=== PATIENT | male | born 1970 | race Caucasian/White ===

== ENCOUNTER 2017-12-18 10:13 | Inpatient (IN) ==
[2017-12-18] MEDS ORDERED: IOPAMIDOL 100 ML BOTTLE IV ONE (10:14)
[2017-12-18] MEDS ORDERED: 0.9 % SODIUM CHLORIDE 1,000 ML IV ONE ×3 (10:28→13:53)
[2017-12-18] MEDS ORDERED: ONDANSETRON 4 MG/2 ML VIAL ONE (10:41)
--- NOTE | 2017-12-18 10:42 | Emergency Department Note ---
Abdominal Pain HPI - General Source: patient Mode of arrival: ambulatory Limitations: no limitations <Iain Starr - Last Filed: 12/18/17 10:38> <Landon Lloyd - Last Filed: 12/18/17 12:57> - General Chief Complaint: Abdominal Pain Stated Complaint: right lower abd pain, nausea, vomiting x 2 days Time Seen by Provider: 12/18/17 10:18 - History of Present Illness HPI Narrative: This is a 47 year old male coming into the ER with c/o right lower quadrant abdominal pain since yesterday at 1:00pm. Describes that it started in the periumbilical region before descending to the right lower quadrant. Describes it as constant, sharp. Has not felt feverish. Has felt chills. reports nausea and vomiting today. Denies pain in the epigastric, left lower quadrant, right upper quadrant, or left upper quadrant. Denies pain radiating to the back. denies hx of ulcerative colitis, celiac, crohns, ibs. denies chest pain, shortness of breath. (Iain Starr) - Related Data Home Medications Medication Instructions Recorded Confirmed No Known Home Meds [No Known Home 12/18/17 12/18/17 Meds] Allergies Allergy/AdvReac Type Severity Reaction Status Date / Time No Known Drug Allergies Allergy Verified 12/18/17 10:17 Review of Systems All systems ED: reviewed and negative except as stated. Constitutional: Reports: chills. Denies: fever, weakness, weight change, sweats Cardiovascular: Denies: chest pain, palpitations Respiratory: Denies: shortness of breath, cough, wheezes, phlegm, hemoptysis Gastrointestinal: Reports: abdominal pain, nausea, vomiting. Denies: diarrhea, constipation Genitourinary: Denies: dysuria, frequency, urgency, hematuria Musculoskeletal: Denies: back pain, joint swelling Integumentary: Denies: rash, lesions Neurological: Denies: headache <Iain Starr - Last Filed: 12/18/17 10:38> Abdominal Pain PMH - Social History Smoking status: Current every day smoker Alcohol use: Reports: Heavy (greater than a fifth of whiskey a day and has gone to rehabilitation in the past) Drug use: Reports: marijuana (records from [facility] [age] year-old, history of methamphetamine abuseand marijuana), methamphetamine <Iain Starr - Last Filed: 12/18/17 10:38> <Landon Lloyd - Last Filed: 12/18/17 12:57> - Past Medical History [facility] Narrative: Medical History Alcoholism (Acute) Bronchitis (Acute) (Iain Starr) Physical Exam Limitations: no limitations General appearance: alert, anxious Head: atraumatic, normocephalic Eye: Present: PERRL, EOMI ENT: TM's normal bilaterally, other (nose appears to be consistent appearing with a recent fall) Neck: Present: normal inspection, full ROM, trachea midline. Absent: tenderness Chest: Present: normal inspection, symmetric chest wall rise Respiratory: Present: normal lung sounds bilaterally Cardiovascular: Present: normal rhythm, tachycardia Abdominal: Present: tenderness, guarding, Rovsing's sign, tenderness at McBurney 's Point. 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 Documented H&P reviewed. Separate assessment made. Patient with increasing right lower quadrant pain. Examination shows anxious, no shortness of breath, no tachypnea. Mild dry mucous membranes. Lung sounds clear, heart sounds regular. Abdomen with diminished bowel sounds, positive rebound and referred pain, focal to the right lower quadrant. Labs, CT, meds ordered. (Landon Lloyd R) Vital Signs Temperature 97.7 F 12/18/17 10:14 Pulse Rate 122 H 12/18/17 10:14 Respiratory Rate 20 12/18/17 10:14 Blood Pressure 120/81 12/18/17 10:14 Pulse Oximetry (%) 97 12/18/17 10:14 Temperature 97.7 F 12/18/17 10:14 Pulse Rate 93 H 12/18/17 11:56 Respiratory Rate 20 12/18/17 10:14 Blood Pressure 114/81 12/18/17 11:56 Pulse Oximetry (%) 94 12/18/17 11:56 Abdominal Pain - Lab Data Result diagrams: 12/18/17 10:36 12/18/17 10:36 <Iain Starr - Last Filed: 12/18/17 10:38> - Lab Data Lab results reviewed: Yes I reviewed the patient's lab results. Result diagrams: 12/18/17 10:36 12/18/17 10:36 - Radiology Data Radiology results reviewed: Yes I reviewed the patient's radiology results. <Lanodn Lloyd - Last Filed: 12/18/17 12:57> - Lab Data Lab Results 12/18/17 12/18/17 12/18/17 Range/Units 10:36 10:36 10:36 WBC 22.0 H (4.5-11.0) K/mcL RBC 5.10 (4.50-5.90) M/mcL Hgb 17.2 H (13.5-16.5) g/dL Hct 50.7 (41.0-55.0) % POC Hct (41.0-55.0) % MCV 99.5 (80.0-100.0) fL MCH 33.8 (26.0-34.0) pg MCHC 33.9 (31.0-36.0) g/dL RDW 14.2 (11.5-14.5) % Plt Count 256 (140-440) K/mcL MPV 8.7 (7.4-10.4) fL Total Counted 100 Seg Neutrophils % 79 H (38-78) % Band Neutrophils % 12 H (0-10) % Lymphocytes % 4 L (15-49) % Monocytes % (Manual) 5 (1-12) % Platelet Estimate Normal (NORMAL) RBC Morphology Normal (NORMAL) VBG Lactic Acid 3.8 H (0.5-2.2) mmol/L POC Sodium (133-145) mmol/L Sodium 136 (133-145) mmol/L POC Potassium (3.3-5.1) mmol/L Potassium 3.3 (3.3-5.1) mmol/L POC Chloride (96-108) mmol/L Chloride 91 L (96-108) mmol/L Carbon Dioxide 30 (22-30) mmol/L POC Total CO2 (22-30) mmol/L Anion Gap 15.0 (8-16) POC BUN (6-20) mg/dl BUN 10 (6-20) mg/dl Creatinine 1.1 (0.7-1.2) mg/dl POC Creatinine (0.7-1.2) mg/dl GFR Calculation 79 Glucose 150 H (70-105) mg/dL POC Glucose (70-105) mg/dL Calcium 10.2 (8.6-10.4) mg/dl POC WB Ioniz Calcium (1.16-1.32) mmol/L Total Bilirubin 1.5 H (0.0-1.0) mg/dL AST 18 (0-37) U/l ALT 16 (0-40) U/l Alkaline Phosphatase 97 (39-117) U/L Total Protein 7.4 (5.9-8.4) gm/dL Albumin 4.1 (3.2-5.2) gm/dL Globulin 3.3 (2.2-3.7) gm/dL Albumin/Globulin Ratio 1.2 (1.0-2.3) 12/18/17 Range/Units 11:09 WBC (4.5-11.0) K/mcL RBC (4.50-5.90) M/mcL Hgb (13.5-16.5) g/dL Hct (41.0-55.0) % POC Hct 46.0 (41.0-55.0) % MCV (80.0-100.0) fL MCH (26.0-34.0) pg MCHC (31.0-36.0) g/dL RDW (11.5-14.5) % Plt Count (140-440) K/mcL MPV (7.4-10.4) fL Total Counted Seg Neutrophils % (38-78) % Band Neutrophils % (0-10) % Lymphocytes % (15-49) % Monocytes % (Manual) (1-12) % Platelet Estimate (NORMAL) RBC Morphology (NORMAL) VBG Lactic Acid (0.5-2.2) mmol/L POC Sodium 137 (133-145) mmol/L Sodium (133-145) mmol/L POC Potassium 3.0 L (3.3-5.1) mmol/L Potassium (3.3-5.1) mmol/L POC Chloride 95 L (96-108) mmol/L Chloride (96-108) mmol/L Carbon Dioxide (22-30) mmol/L POC Total CO2 28 (22-30) mmol/L Anion Gap (8-16) POC BUN 10 (6-20) mg/dl BUN (6-20) mg/dl Creatinine (0.7-1.2) mg/dl POC Creatinine 0.8 (0.7-1.2) mg/dl GFR Calculation Glucose (70-105) mg/dL POC Glucose 117 H (70-105) mg/dL Calcium (8.6-10.4) mg/dl POC WB Ioniz Calcium 1.04 L (1.16-1.32) mmol/L Total Bilirubin (0.0-1.0) mg/dL AST (0-37) U/l ALT (0-40) U/l Alkaline Phosphatase (39-117) U/L Total Protein (5.9-8.4) gm/dL Albumin (3.2-5.2) gm/dL Globulin (2.2-3.7) gm/dL Albumin/Globulin Ratio (1.0-2.3) - Radiology Data CT with free air; suspected perforation (Landon Lloyd) Disposition Pt seen by TRANSFER STATION OPERATOR/PA only: No <Iain Starr - Last Filed: 12/18/17 10:38> Pt seen by TRANSFER STATION OPERATOR/PA only: No <Landon Lloyd - Last Filed: 12/18/17 12:57> Clinical Impression: Intra-abdominal free air of unknown etiology, Alcohol abuse Summary: 1.) RLQ Abdominal pain, unspecified A.) Order CT r/o appendicitis b.) Order CBC, CMP c.) Order 1000 ml NS d.) Order Zofran IV e.) Order Dilaudid IV f.) re-evaluate after results are in. (Iain Starr) Dr. Chapin, surgery to follow; suspected perforated ulcer versus retroperitoneal appendix (Landon Llody) Disposition: Xfer As Inpt ([facility] [place]) Condition: Serious
[2017-12-18] MEDS ORDERED: ONDANSETRON 4 MG/2 ML VIAL IV ONE ×2 (10:43→15:05)
[2017-12-18] MEDS: HYDROmorphone 2 MG/ML VIAL IV PRN ×5 (10:48→22:37)
[2017-12-18 11:05] LABS: Mean Cell Volume 99.5 fL (80.0-100.0); Mean Corpuscular HGB Conc 33.9 g/dL (31.0-36.0); Mean Corpuscular Hemoglobin 33.8 pg (26.0-34.0); Platelet Count 256 K/mcL (140-440); Red Cell Distribution Width 14.2 % (11.5-14.5)
[2017-12-18 11:28] LABS: ALT/SGPT 16 U/l (0-40); Albumin 4.1 gm/dL (3.2-5.2); Albumin/Globulin Ratio 1.2 (1.0-2.3); Alkaline Phosphatase 97 U/L (39-117); Blood Urea Nitrogen 10 mg/dl (6-20)
[2017-12-18 11:38] LABS: Band Neutrophils % 12 % (0-10); Lymphocytes % 4 % (15-49); Monocytes % (Manual) 5 % (1-12); Platelet Estimate NORMAL (NORMAL); RBC Morphology NORMAL (NORMAL); Segmented Neutrophils % 79 % (38-78)
--- NOTE | 2017-12-18 12:48 | Cat Scan Report ---
CLINICAL INFORMATION: Acute right abdominal pain COMPARISON: None. TECHNIQUE: Following enteric contrast, 80 cc of Isovue-300 were injected intravenously, and 60 seconds later, 0.625 mm helical slices were obtained from the mid heart through the subtrochanteric regions. Following reconstruction, 2.5 mm sagittal, coronal and axial reformatted images were processed and reviewed at bone, lung and soft tissue windows. Five minutes later, 0.625 mm helical slices were obtained from the mid heart through the kidneys and viewed at soft tissue windows.The exam was performed using radiation dose optimization techniques including, but not limited to, automated exposure control, adjustment of the mA and/or kV according to patient size and use of iterative reconstruction technique. FINDINGS: Lung bases show scattered bullae and minimal atelectasis in the posterior dependent regions. Small focal linear calcification seen in the left diaphragmatic pleura. No effusions. Visualized heart is normal. Images through the abdomen show minimal fatty change within the liver, but no focal lesions. The gallbladder and bile ducts, both kidneys, adrenal glands, spleen, pancreas and aorta, including aortic branches, are normal in size, configuration and attenuation without focal lesion. Images through the pelvis show urinary bladder, prostate and seminal vesicles are normal. There is a moderate gas and fluid in the right retroperitoneum extending from the right periduodenal region, anterior right pararenal space into the right retrocolic region. No perforated duodenal ulcer or right colonic perforation can be specifically identified by CT. The remainder of the colon, small bowel, stomach and appendix are normal. Bone windows show no osseous abnormality. There is no free intraperitoneal air or fluid. IMPRESSION: 1. Moderate air and fluid throughout the right retroperitoneum including the periduodenal, anterior pararenal and right retrocolic space. This ostensibly originated from a retroperitoneal rupture of a hollow abdominal viscus - likely a peptic ulceration in the duodenum. Pathologic perforation of the right colon is possible, but less likely. If it is clinically important to localize the precise anatomic site of perforation prior to surgery, copious water soluble, positive enteric contrast could be administered and the CT could be repeated. Interpreted and Authenticated by: Pravin Maloney 12/18/17
[2017-12-18] MEDS ORDERED: NICOTINE 21 MG PATCH TOPICAL ONE (14:15)
[2017-12-18] MEDS ORDERED: PIPERACILLIN SODIUM/TAZOBACTAM 3.375 GM in DEXTROSE 5% IN WATER 50 ML IV SCH (14:30)
[2017-12-18] MEDS ORDERED: 0.9 % SODIUM CHLORIDE 1,000 ML IV SCH (14:30)
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
[2017-12-18 14:34] LABS: Amphetamine Screen,Urine NONE DETECTED (NONDETECTED); Benzodiazepines Screen,Urine NONE DETECTED (NONDETECTED); Cocaine Screen,Urine NONE DETECTED (NONDETECTED); Opiate Screen,Urine NONE DETECTED (NONDETECTED); Oxycodone, Urine Screen NONE DETECTED (NONDETECTED)
[2017-12-18] MEDS ORDERED: LORazepam 2 MG/ML VIAL IV ONE (14:41)
[2017-12-18] MEDS ORDERED: POTASSIUM CHLORIDE 20 MEQ in DEXTROSE 5% IN WATER 250 ML IV ONE (14:51)
[2017-12-18] MEDS ORDERED: ROCURONIUM 10 MG/ML ML IV ONE (15:05)
[2017-12-18] MEDS ORDERED: ESMOLOL 100 MG/10 ML VIAL IV ONE (15:05)
[2017-12-18] MEDS ORDERED: KETAMINE 100 MG/ML ML IV ONE (15:05)
[2017-12-18] MEDS ORDERED: PROPOFOL 200 MG/20 ML VIAL IV ONE (15:05)
[2017-12-18] MEDS ORDERED: METOPROLOL TARTRATE 5 MG/5 ML VIAL IV ONE (15:05)
[2017-12-18] MEDS ORDERED: GLYCOPYRROLATE 0.2 MG/ML VIAL IV ONE (15:05)
[2017-12-18] MEDS ORDERED: HETASTARCH 6% 500 ML BAG IV ONE (15:05)
[2017-12-18] MEDS ORDERED: DEXAMETHASONE 10 MG/ML VIAL IV ONE (15:05)
[2017-12-18] MEDS ORDERED: LIDOCAINE HCL/PF 100 MG/5 ML SYRINGE IV ONE (15:05)
[2017-12-18] MEDS ORDERED: fentaNYL 100 MCG/2 ML VIAL IV ONE (15:05)
[2017-12-18] MEDS ORDERED: NEOSTIGMINE 1 MG/ML VIAL IV ONE (15:05)
[2017-12-18] MEDS ORDERED: MIDAZOLAM 5 MG/5 ML VIAL IV ONE (15:05)
[2017-12-18] MEDS ORDERED: PHENYLEPHRINE 10 MG/ML VIAL IV ONE (15:05)
[2017-12-18] MEDS: PANTOPRAZOLE 40 MG VIAL IV SCH (15:22)
[2017-12-18] MEDS ORDERED: ONDANSETRON 4 MG/2 ML VIAL IV PRN ×2 (16:21→17:07)
[2017-12-18] MEDS ORDERED: MEPERIDINE 25 MG/ML SYRINGE IV PRN (16:21)
[2017-12-18] MEDS ORDERED: fentaNYL 100 MCG/2 ML VIAL IV PRN (16:21)
[2017-12-18] MEDS ORDERED: IPRATROPIUM/ALBUTEROL 3 ML AMPUL.NEB NEB PRN (16:21)
[2017-12-18] MEDS ORDERED: MEPERIDINE 50 MG/ML INJECTION IM PRN (16:21)
[2017-12-18] MEDS ORDERED: LACTATED RINGERS 250 ML IV PRN (16:21)
[2017-12-18] MEDS ORDERED: NALOXONE HCL 0.4 MG/ML VIAL IV PRN (16:21)
[2017-12-18] MEDS ORDERED: METHOCARBAMOL 1,000 MG/10 ML VIAL IV PRN (16:21)
[2017-12-18] MEDS ORDERED: HYDROmorphone 2 MG/ML VIAL IV PRN (16:21)
[2017-12-18] MEDS ORDERED: ACETAMINOPHEN 1,000 MG/100 ML BOTTLE IV ONE (16:21)
[2017-12-18] MEDS ORDERED: BENZOCAINE/MENTHOL 1 LOZENGE PO PRN (16:21)
[2017-12-18] MEDS ORDERED: FLUMAZENIL 0.1 MG/ML ML IV PRN (16:21)
[2017-12-18] MEDS ORDERED: PROMETHAZINE 25 MG/ML VIAL IM PRN (16:21)
[2017-12-18] MEDS ORDERED: LACTATED RINGERS 1,000 ML IV SCH (16:30)
[2017-12-18] MEDS ORDERED: PANTOPRAZOLE 40 MG VIAL IV SCH (17:00)
--- NOTE | 2017-12-18 17:05 | Brief Operative Note ---
Date of procedure: 12/18/17 Pre-op diagnosis: perforated viscus Post-op diagnosis: other (perforated duodenal bulb ulcer) Procedure: fabio patch closure of duodenal ulcer Grafts/Implants: No (evonne drain x 2) Anesthesia: GETA Findings: retroperitoneal perforation of duodenal bulb along posterolateral margin with extensive retroperitoneal inflammation extending to perirenal space and contained abscess Complications: none Surgeon: Leyda Chapin Estimated blood loss (cc): 50 Specimens Removed/Pathology: other (cultures of abscess cavity fluid) Condition: stable Disposition: PACU
[2017-12-18] MEDS ORDERED: PROMETHAZINE 25 MG/ML VIAL IV PRN (17:07)
[2017-12-18] MEDS: METOCLOPRAMIDE 10 MG/2 ML VIAL IV SCH ×2 (19:02→23:47)
[2017-12-18] MEDS: 0.9 % SODIUM CHLORIDE 1,000 ML IV SCH (19:02)
[2017-12-18] MEDS: PIPERACILLIN SODIUM/TAZOBACTAM 3.375 GM in DEXTROSE 5% IN WATER 50 ML IV SCH ×2 (19:06→23:47)
[2017-12-18] MEDS: LORazepam 2 MG/ML VIAL IV PRN (21:34)
[2017-12-18] MEDS: 0.9 % SODIUM CHLORIDE 10 ML SYRINGE IV SCH (22:37)
[2017-12-19] MEDS: HYDROmorphone 2 MG/ML VIAL IV PRN ×10 (00:30→23:29)
[2017-12-19] MEDS: 0.9 % SODIUM CHLORIDE 1,000 ML IV SCH ×4 (03:10→20:08)
[2017-12-19] MEDS: LORazepam 2 MG/ML VIAL IV PRN (04:15)
[2017-12-19 05:20] LABS: Mean Cell Volume 101.4 fL (80.0-100.0); Mean Corpuscular HGB Conc 33.4 g/dL (31.0-36.0); Mean Corpuscular Hemoglobin 33.9 pg (26.0-34.0); Platelet Count 163 K/mcL (140-440); RBC 3.92 M/mcL (4.50-5.90); Red Cell Distribution Width 14.2 % (11.5-14.5)
[2017-12-19] MEDS: METOCLOPRAMIDE 10 MG/2 ML VIAL IV SCH ×4 (05:37→23:29)
[2017-12-19] MEDS: 0.9 % SODIUM CHLORIDE 10 ML SYRINGE IV SCH ×3 (05:37→22:45)
[2017-12-19] MEDS: PIPERACILLIN SODIUM/TAZOBACTAM 3.375 GM in DEXTROSE 5% IN WATER 50 ML IV SCH ×4 (05:38→23:30)
[2017-12-19 05:45] LABS: ALT/SGPT 13 U/l (0-40); Albumin 2.7 gm/dL (3.2-5.2); Alkaline Phosphatase 64 U/L (39-117); Bilirubin,Direct 0.3 mg/dL (0.0-0.3); Blood Urea Nitrogen 10 mg/dl (6-20); Gamma Glutamyl Transpeptidase 14 U/L (8-61); Uric Acid 2.5 mg/dL (2.5-8.0)
--- NOTE | 2017-12-19 07:29 | Operative Note ---
DATE OF OPERATION: 12/18/2017 PREOPERATIVE DIAGNOSIS: Perforated viscus. POSTOPERATIVE DIAGNOSIS: Perforated duodenal bulb ulcer. SURGEON: Leyda Chapin MD FINDINGS: Retroperitoneal perforation of the duodenal bulb along the posterolateral margin with extensive retroperitoneal inflammation extending to the perirenal space with a contained abscess. PROCEDURE: Benji patch closure of duodenal ulcer. DESCRIPTION OF PROCEDURE: Under general anesthesia, the patient's abdomen was prepped and draped in the sterile field. A time-out procedure was carried out as per protocol. Upper midline incision was made. Exploration of the abdomen initially did not reveal any intraperitoneal drainage or inflammation. Examination of the subhepatic space did not reveal any drainage. There was no free fluid in the pelvis. Dissection along the superior margin of the duodenal bulb revealed an area of what appeared to be inflammation with a pointing abscess. The Bookwalter retractor was placed and this area was widely exposed. Incision was made over one of the bulging areas and a large volume of mucopurulent drainage was encountered, 5 mL of this drainage was suctioned and was sent for routine culture SURGICAL APPLIANCE FITTER and Gram stain. The duodenum was completely mobilized. The duodenum was mobilized to the second portion. The duodenal bulb showed a punctate perforation distal to the pylorus along the superior lateral margin. It was slightly posterior. This area was irrigated copiously and the fibrinous exudate was debrided. No other area of perforation was noted. The ulcer perforation was closed with four sutures of 2-0 silk. An omental patch from the greater omentum was fashioned and was placed over the area of the closure and the sutures were tied. Multiple 3-0 silk sutures were then placed along the lateral borders of this patch to get firm adherence of the patch to the duodenum. This was done without tension in an attempt to prevent compromise of the duodenal lumen. Irrigation was carried out once more. Two #10 Ramesh drains were placed and brought out in the right upper quadrant laterally. Nasogastric tube was positioned in the stomach. Copious irrigation of the peritoneal cavity was carried out and there was no purulent drainage noted. The appendix was noted at the base of the cecum and it was normal. Sponge, needle, instrument and blade counts were verified as correct. A visceral retractor was placed and the peritoneum was closed using a running #1 Prolene. Subcutaneous tissue was irrigated and then closed with running 2-0 Monocryl. Skin was closed with lucas. Drains were secured with 2-0 nylon. Large Tegaderm dressings were placed. The patient tolerated the procedure well. He was awakened, extubated, and transferred to the Postanesthetic Care Unit in stable satisfactory condition. LCS:ivone Job ID: [id number] Doc ID: [id number] Leyda Chapin M.D.
[2017-12-19] MEDS ORDERED: MAGNESIUM SULFATE 32.48 MEQ in DEXTROSE 5% IN WATER 100 ML IV ONE (08:00)
[2017-12-19] MEDS: PANTOPRAZOLE 40 MG VIAL IV SCH ×2 (08:04→17:11)
[2017-12-19 08:09] LABS: Anisocytosis 1+ (NONE SEEN); Band Neutrophils % 15 % (0-10); Lymphocytes % 3 % (15-49); Monocytes % (Manual) 3 % (1-12); Platelet Estimate NORMAL (NORMAL); RBC Morphology ABNORM (NORMAL); Segmented Neutrophils % 79 % (38-78)
[2017-12-19] MEDS: NICOTINE 21 MG PATCH TOPICAL SCH (17:02)
[2017-12-19] MEDS: BENZOCAINE/MENTHOL 1 LOZENGE PO PRN ×3 (17:02→21:38)
--- NOTE | 2017-12-19 17:04 | General Surgery Progress Note ---
Subjective Patient reports: feels better, pain is less, no flatus, no bowel movement, afebrile Narrative: Note initiated : 12/19/17 at 5:02 pm Service Date, if different from initiated Date: [] Patient: Fermín Galo 47 y/o M admitted on 12/18/17 for R.Lower Abd Pain, Vomiting,Prefor.of Duodenal Bulb. Chief Complaint: [Patient is doing well except for the anticipated incisional pain. He does not have any nausea. He complains of withdrawal symptoms from nicotine. He does not have any mental confusion or agitation otherwise. He denies chest pain or shortness of breath. RAHEL drainage is serosanguineous without any bilious drainage noted.] Objective Temp Pulse Resp BP Pulse Ox 99 F 89 9 L 106/82 95 12/19/17 15:01 12/19/17 16:11 12/19/17 15:01 12/19/17 15:01 12/19/17 16:11 - Additional Data Intake & Output - Last 24 hours: Intake & Output 12/17/17 12/18/17 12/19/17 12/20/17 05:59 05:59 05:59 05:59 Intake Total 3150 / 3150 1050 / 1050 Output Total 1045 / 1045 1230 / 1230 Balance 2105 / 2105 -180 / -180 Weight 190 lb 14.4 oz 190 lb 14.4 oz - General physical appearance well developed, well nourished, moderate distress - Eyes PERRL, normal ocular movement - ENT normal pinna, normal nares, normal mucosa, no hearing loss, no congestion - Neck no masses, no bruits, trachea midline, no lymphadectomy, no venous distension - Respiratory clear to auscultation, other (Decreased breath sounds bilaterally but without any rales or wheezes) - Cardiovascular Cardiovascular exam: Present: normal rate and rhythm, RRR, +S1, +S2. Absent: JVD - Abdomen tender, bowel sounds, distended (Mild abdominal distention; incision looks unremarkable; few active bowel sounds; RAHEL drainage is serosanguineous) - Integumentary no rash, no growths, no abnormal pigmentation - Neurologic normal coordination, normal sensation - Psychiatric oriented to time, oriented to person, oriented to place, speech is normal, memory intact - Labs 12/19/17 03:52 12/19/17 03:52 Diabetes panel 12/19/17 Range/Units 03:52 Sodium 137 (133-145) mmol/L Potassium 4.1 (3.3-5.1) mmol/L Chloride 101 (96-108) mmol/L Carbon Dioxide 26 (22-30) mmol/L BUN 10 (6-20) mg/dl Creatinine 0.7 (0.7-1.2) mg/dl Glucose 115 H (70-105) mg/dL Calcium 7.8 L (8.6-10.4) mg/dl AST 19 (0-37) U/l ALT 13 (0-40) U/l Alkaline Phosphatase 64 (39-117) U/L Total Protein 5.3 L (5.9-8.4) gm/dL Albumin 2.7 L (3.2-5.2) gm/dL Triglycerides 44 (<150) mg/dl Calcium panel 12/19/17 Range/Units 03:52 Calcium 7.8 L (8.6-10.4) mg/dl Phosphorus 2.7 (2.7-4.5) mg/dL Albumin 2.7 L (3.2-5.2) gm/dL Pituitary panel 12/19/17 Range/Units 03:52 Sodium 137 (133-145) mmol/L Potassium 4.1 (3.3-5.1) mmol/L Chloride 101 (96-108) mmol/L Carbon Dioxide 26 (22-30) mmol/L BUN 10 (6-20) mg/dl Creatinine 0.7 (0.7-1.2) mg/dl Glucose 115 H (70-105) mg/dL Calcium 7.8 L (8.6-10.4) mg/dl Adrenal panel 12/19/17 Range/Units 03:52 Sodium 137 (133-145) mmol/L Potassium 4.1 (3.3-5.1) mmol/L Chloride 101 (96-108) mmol/L Carbon Dioxide 26 (22-30) mmol/L BUN 10 (6-20) mg/dl Creatinine 0.7 (0.7-1.2) mg/dl Glucose 115 H (70-105) mg/dL Calcium 7.8 L (8.6-10.4) mg/dl Total Bilirubin 0.8 (0.0-1.0) mg/dL AST 19 (0-37) U/l ALT 13 (0-40) U/l Alkaline Phosphatase 64 (39-117) U/L Total Protein 5.3 L (5.9-8.4) gm/dL Albumin 2.7 L (3.2-5.2) gm/dL Assessment and Plan (1) Perforated abdominal viscus Status: Acute Assessment and plan: Stable postoperative day #1 We will continue present therapy for the time being Current Visit: Yes (2) History of polydrug abuse Status: Acute Assessment and plan: No clinical evidence of drug withdrawal symptoms Current Visit: Yes (3) Alcoholism Status: Acute Assessment and plan: No evidence of alcohol withdrawal Current Visit: No (4) Bronchitis Status: Acute Current Visit: No - Time Spent With Patient Total time spent is greater than 50% in coordination of care (as documented) at patient's floor/unit and/or counseling patient:
[2017-12-20] MEDS: HYDROmorphone 2 MG/ML VIAL IV PRN ×4 (01:32→09:20)
[2017-12-20] MEDS: BENZOCAINE/MENTHOL 1 LOZENGE PO PRN ×2 (01:35→08:31)
[2017-12-20] MEDS: 0.9 % SODIUM CHLORIDE 1,000 ML IV SCH ×2 (03:47→11:50)
[2017-12-20 05:30] LABS: Mean Cell Volume 100.5 fL (80.0-100.0); Mean Corpuscular HGB Conc 33.8 g/dL (31.0-36.0); Mean Corpuscular Hemoglobin 33.9 pg (26.0-34.0); Platelet Count 134 K/mcL (140-440); RBC 3.69 M/mcL (4.50-5.90); Red Cell Distribution Width 14.3 % (11.5-14.5)
[2017-12-20] MEDS: METOCLOPRAMIDE 10 MG/2 ML VIAL IV SCH ×2 (05:35→12:15)
[2017-12-20] MEDS: 0.9 % SODIUM CHLORIDE 10 ML SYRINGE IV SCH (05:35)
[2017-12-20] MEDS: PIPERACILLIN SODIUM/TAZOBACTAM 3.375 GM in DEXTROSE 5% IN WATER 50 ML IV SCH ×2 (05:35→12:15)
[2017-12-20 06:09] LABS: ALT/SGPT 9 U/l (0-40); Albumin 2.6 gm/dL (3.2-5.2); Alkaline Phosphatase 58 U/L (39-117); Bilirubin,Direct < 0.2 mg/dL (0.0-0.3); Blood Urea Nitrogen 13 mg/dl (6-20); Gamma Glutamyl Transpeptidase 14 U/L (8-61); Uric Acid 2.2 mg/dL (2.5-8.0)
[2017-12-20] MEDS: PANTOPRAZOLE 40 MG VIAL IV SCH (07:01)
[2017-12-20 07:27] LABS: Band Neutrophils % 1 % (0-10); Lymphocytes % 14 % (15-49); Macrocytosis 1+ (NONE SEEN); Monocytes % (Manual) 4 % (1-12); Platelet Estimate DECREASED (NORMAL); RBC Morphology ABNORM (NORMAL); Segmented Neutrophils % 81 % (38-78)
[2017-12-20] MEDS: NICOTINE 21 MG PATCH TOPICAL SCH (08:23)
[2017-12-20] MEDS ORDERED: IPRATROPIUM/ALBUTEROL 3 ML AMPUL.NEB NEB PRN (10:30)
[2017-12-20] MEDS ORDERED: FUROSEMIDE 40 MG/4 ML VIAL IV ONE ×2 (10:37→11:06)
[2017-12-20] MEDS ORDERED: AMIODARONE 150 MG in DEXTROSE 5% IN WATER 100 ML IV ONE (10:49)
[2017-12-20] MEDS ORDERED: PROPOFOL 100 ML IV ONE (10:50)
--- NOTE | 2017-12-20 10:50 | XRay Report ---
CLINICAL INFORMATION: Acute cardiopulmonary arrest COMPARISON: 04/17/2016 FINDINGS: The heart is borderline enlarged. Mediastinum and pulmonary vessels are normal. NG tip extends to the gastric fundus. There are large bilateral alveolar infiltrates in left mid/upper lung and right mid/lower lung. No effusions IMPRESSION: Large bilateral alveolar infiltrates. Suspect ARDS or, less likely, aspiration Interpreted and Authenticated by: Pravin Maloney 12/20/17
[2017-12-20] MEDS ORDERED: HEPARIN/NS 500 ML IV ONE (10:54)
[2017-12-20] MEDS ORDERED: fentaNYL 100 MCG/2 ML VIAL IV ONE (10:58)
[2017-12-20] MEDS ORDERED: fentaNYL 2,500 MCG in 0.9 % SODIUM CHLORIDE 200 ML IV SCH (11:00)
[2017-12-20] MEDS ORDERED: PROPOFOL 1,000 MG in PREMIX 1 BAG IV SCH (11:00)
[2017-12-20] MEDS ORDERED: METOPROLOL TARTRATE 5 MG/5 ML VIAL IV ONE (11:06)
[2017-12-20 11:26] LABS: Basophils # (Auto) 0 K/mcL (0.0-0.3); Basophils % (Auto) 0.1 % (0.0-2.0); Eosinophils # (Auto) 0.3 K/mcL (0.0-0.7); Eosinophils % (Auto) 1.3 % (0.0-7.0); Granulocytes % (Auto) 81.6 % (38.0-78.0); Lymphocytes # (Auto) 3.6 K/mcL (1.5-4.8); Lymphocytes % (Auto) 15.8 % (15.5-49.0); Mean Cell Volume 101.8 fL (80.0-100.0); Mean Corpuscular HGB Conc 33.1 g/dL (31.0-36.0); Mean Corpuscular Hemoglobin 33.8 pg (26.0-34.0); Monocytes # (Auto) 0.3 K/mcL (0.1-0.9); Monocytes % (Auto) 1.2 % (1.0-12.0); Platelet Count 197 K/mcL (140-440); RBC 4.58 M/mcL (4.50-5.90); Red Cell Distribution Width 14.3 % (11.5-14.5)
[2017-12-20 11:47] LABS: Creatine Kinase MB 2.1 ng/ml (0-4.9)
[2017-12-20 11:49] LABS: ALT/SGPT 11 U/l (0-40); Albumin 2.9 gm/dL (3.2-5.2); Albumin/Globulin Ratio 0.9 (1.0-2.3); Alkaline Phosphatase 82 U/L (39-117); Blood Urea Nitrogen 13 mg/dl (6-20)
--- NOTE | 2017-12-20 11:54 | XRay Report ---
CLINICAL INFORMATION: ET placement COMPARISON: 12/20/2017 FINDINGS: Endotracheal tube tip is 6.5 cm above the adriana. Right IJ central line tip overlies the SVC brachycephalic junction. NG tube remains in stable satisfactory position. Cardiomediastinal silhouette and pulmonary vessels are normal. Densely consolidated infiltrates in the left mid and upper lung and moderate infiltrate in the right mid and lower lung show slight worsening. There is now a small infiltrative component in the left base IMPRESSION: 1. Slight worsening bilateral alveolar infiltrates now involving the left base 2. Endotracheal tip is 6.5 cm above the adriana and should be functional. Right IJ line in satisfactory position. NG tube in stable satisfactory position. Interpreted and Authenticated by: Pravin Maloney 12/20/17
--- NOTE | 2017-12-20 11:59 | General Surgery Progress Note ---
Subjective Patient reports: shortness of breath, other (Acute hypoxemia) Narrative: Note initiated : 12/20/17 at 11:52 am Service Date, if different from initiated Date: [] Patient: Fermín Galo 47 y/o M admitted on 12/18/17 for R.Lower Abd Pain, Vomiting,Prefor.of Duodenal Bulb. Chief Complaint: [Patient had an uneventful night and was doing well until about 10 AM when he complained of shortness of breath and it was noted that his O2 saturations were dropping. His oxygen was titrated up and his sats continued to drop to the 70 range. I was contacted and when I arrived the patient was in severe respiratory distress nearly unresponsive, diaphoretic. He had distended neck veins bilaterally and had bilateral coarse rales and rhonchi in his lungs. He was on a nonrebreather mask and while we were preparing to have him intubated his O2 sats dropped in the 60s. He was successfully intubated and was given rapid ventilation on 100% O2 and his oxygen saturations increased to the low 70s. He received 40 of IV Lasix. Chest x-ray showed florid bilateral alveolar infiltrates. He had extensive high -volume bloody frothy fluid in his ET tube compatible with acute pulmonary edema. He was given low-volume rapid was frequency ventilation and sedated. His heart rate gradually decreased and his O2 sats increased. And a central line was placed and follow-up chest x-ray showed some early clearing of his infiltrates with better aeration. His initial troponin is less than 0.01. Cardiac enzymes are not available at this time otherwise. This morning BUN was 13 creatinine 0.6 ,sodium 138, white blood count 13.6 ,hemoglobin 12.5, hematocrit 37.1 and platelets 134,000.. His initial EKG showed tachycardia but without any significant ST-T wave changes and no significant change from his EKG on 18 December. He is being managed by our hospitalist who felt that he should be transferred to a high level of care for further treatment and investigation. He has been accepted at [facility] and after he is stabilized more he will be transferred by air care.] Objective Temp Pulse Resp BP Pulse Ox 100.1 F H 97 H 20 134/83 80 L 12/19/17 20:01 12/20/17 06:01 12/20/17 11:15 12/20/17 07:01 12/20/17 11:15 - Additional Data Intake & Output - Last 24 hours: Intake & Output 12/18/17 12/19/17 12/20/17 12/21/17 05:59 05:59 05:59 05:59 Intake Total 3150 / 3150 3368 / 3368 1283 / 1283 Output Total 1045 / 1045 2500 / 2500 670 / 670 Balance 2105 / 2105 868 / 868 613 / 613 Weight 190 lb 14.4 oz 192 lb 14.4 oz - General physical appearance severe distress - Neck other (Bilateral jugular venous distention) - Respiratory other (Coarse tubular breath sounds bilaterally with course rales and rhonchi) - Cardiovascular Cardiovascular exam: Present: tachycardia (Heart rate 110 with sinus rhythm) - Abdomen bowel sounds (Hypoactive bowel sounds; moderate distention RAHEL drainage with serosanguineous drainage unchanged) - Integumentary no rash, no growths, no abnormal pigmentation - Neurologic other (Intubated and paralyzed) - Psychiatric other (Intubated and paralyzed) - Labs 12/20/17 10:50 12/20/17 10:50 Diabetes panel 12/20/17 12/20/17 Range/Units 04:03 10:50 Sodium 138 139 (133-145) mmol/L Potassium 3.6 3.7 (3.3-5.1) mmol/L Chloride 103 101 (96-108) mmol/L Carbon Dioxide 27 20 L (22-30) mmol/L BUN 13 13 (6-20) mg/dl Creatinine 0.6 L 0.8 (0.7-1.2) mg/dl Glucose 84 88 (70-105) mg/dL Calcium 7.8 L 8.3 L (8.6-10.4) mg/dl AST 15 19 (0-37) U/l ALT 9 11 (0-40) U/l Alkaline Phosphatase 58 82 (39-117) U/L Total Protein 5.2 L 6.3 (5.9-8.4) gm/dL Albumin 2.6 L 2.9 L (3.2-5.2) gm/dL Triglycerides 68 (<150) mg/dl Calcium panel 12/20/17 12/20/17 Range/Units 04:03 10:50 Calcium 7.8 L 8.3 L (8.6-10.4) mg/dl Phosphorus 1.8 L (2.7-4.5) mg/dL Albumin 2.6 L 2.9 L (3.2-5.2) gm/dL Pituitary panel 12/20/17 12/20/17 Range/Units 04:03 10:50 Sodium 138 139 (133-145) mmol/L Potassium 3.6 3.7 (3.3-5.1) mmol/L Chloride 103 101 (96-108) mmol/L Carbon Dioxide 27 20 L (22-30) mmol/L BUN 13 13 (6-20) mg/dl Creatinine 0.6 L 0.8 (0.7-1.2) mg/dl Glucose 84 88 (70-105) mg/dL Calcium 7.8 L 8.3 L (8.6-10.4) mg/dl Adrenal panel 12/20/17 12/20/17 Range/Units 04:03 10:50 Sodium 138 139 (133-145) mmol/L Potassium 3.6 3.7 (3.3-5.1) mmol/L Chloride 103 101 (96-108) mmol/L Carbon Dioxide 27 20 L (22-30) mmol/L BUN 13 13 (6-20) mg/dl Creatinine 0.6 L 0.8 (0.7-1.2) mg/dl Glucose 84 88 (70-105) mg/dL Calcium 7.8 L 8.3 L (8.6-10.4) mg/dl Total Bilirubin 0.6 0.8 (0.0-1.0) mg/dL AST 15 19 (0-37) U/l ALT 9 11 (0-40) U/l Alkaline Phosphatase 58 82 (39-117) U/L Total Protein 5.2 L 6.3 (5.9-8.4) gm/dL Albumin 2.6 L 2.9 L (3.2-5.2) gm/dL Assessment and Plan (1) Perforated abdominal viscus Status: Acute Assessment and plan: Stable postoperative day #2 We will continue present therapy for the time being Current Visit: Yes (2) History of polydrug abuse Status: Acute Assessment and plan: No clinical evidence of drug withdrawal symptoms Current Visit: Yes (3) Alcoholism Status: Acute Assessment and plan: No evidence of alcohol withdrawal Current Visit: No (4) Bronchitis Status: Acute Current Visit: No (5) Acute respiratory failure with hypoxemia Status: Acute Assessment and plan: Patient is intubated, ventilated and oxygenation is improving Current Visit: Yes (6) Acute pulmonary edema with congestive heart failure Status: Acute Current Visit: Yes - Time Spent With Patient Total time spent is greater than 50% in coordination of care (as documented) at patient's floor/unit and/or counseling patient:
--- NOTE | 2017-12-20 12:13 | Procedure Note ---
Procedures - Arterial Line Consent obtained: written consent Time out performed: Yes Additional comments: Multiple attempts by 2 anesthesia providers for radial arterial lines on left and right radial arteries. Ultrasound utilized as well. Flash seen multiple times, catheter unable to thread, overwire attempts made. Facility accepting transfer notified. - Central Line Placement Right IJ Consent obtained: written consent Time out performed: Yes Patient placed on monitor/pulse ox: Yes prep: mask, sterile gown, sterile gloves, cap Central line prep: 2% Chlorhexidine scrub Central line lumen inserted: quad, 16 cm Post procedure: sutured in place, good blood return, all ports aspirated, flushed, capped, sterile dressing applied Post procedure x-ray: tip of catheter in good position, no pneumothorax seen Patient tolerated procedure: well Complications: none
--- NOTE | 2017-12-20 12:23 | Internal Medicine Consult Note ---
Medical - CN: HPI - Data of Consult Requesting Physician: Leyda Chapin MD - Consult Narrative Reason for consult: respiratory failure History of present illness: Mr. Galo is a 47 year old M with a history of polysubstance abuse who came in with duodenal ulcer perforation/peritonitis. Patient underwent operative intervention by surgery and has been recovering until this morning patient was found hypoxic with labored breathing diaphoretic and subsequently rapid response was called. Per history patient has had a rapid deterioration over the last 30 minutes. Initial vitals reveal blood pressure 160 x 1 30 with sats 70% and tachycardia over 200. Patient was on 15 L oxygen. Patient was rapidly intubated due to profound hypoxia by Dr. Ahumada. propofol and fentanyl was initiated along with chest imaging that revealed bilateral infiltrates. Copious frothy bloodstained sputum through ET tube. Central line was secured. Patient sats remained in mid 70s despite high PEEP and her percent FiO2. Case was discussed with surgeon and was felt patient would require tertiary center transfer for profound hypoxia respiratory failure not improving on mechanical ventilation. Patient received 1 dose of metoprolol/ Lasix. Case was discussed with [place] [facility] Dr. Yip, who accepted the patient for further management. vent settings were changed to APRV bilevel setting per paraoptometric recommendations. over 300 cc urine output in response to Lasix. Repeat chest imaging scan reveals IJ line in satisfactory position along with bilateral infiltrates and ET tube 6.5 cm above adriana. ABG 7.2/71/55 on 100% FiO2 PEEP 10 review of systems Could not be performed CC: Leyda Chapin MD Medical - CN: [facility] Medical history: Drug use Medical - CN: Meds Home Medications Medication Instructions Recorded Confirmed Type No Known Home Meds [No Known Home 12/18/17 12/18/17 History Meds] Allergies Allergy/AdvReac Type Severity Reaction Status Date / Time No Known Drug Allergies Allergy Verified 12/18/17 10:17 Medical - CN: Exam - Constitutional Vitals: Temp Pulse Resp BP Pulse Ox 100.1 F H 97 H 20 134/83 80 L 12/19/17 20:01 12/20/17 06:01 12/20/17 11:15 12/20/17 07:01 12/20/17 11:15 Exam: on mechanical ventilation diaphoretic Foleys draining clear urine Pupils symmetric Oral cavity dry NG tube in place no ear discharge S1 and S2 tachycardia Diminished breath sounds bilaterally Respiratory no cyanosis clubbing Skin no suspicious lesion psych and neuro ExamCould not be performed as patient is under rocuronium/ propofol fentanyl Medical - CN: Result - Labs CBC & Chem 7: 12/20/17 10:50 12/20/17 10:50 Labs: Short CBC 12/20/17 12/20/17 Range/Units 04:03 10:50 WBC 13.6 H 22.6 H (4.5-11.0) K/mcL Hgb 12.5 L 15.4 (13.5-16.5) g/dL Hct 37.1 L 46.6 (41.0-55.0) % Plt Count 134 L 197 (140-440) K/mcL BMP 12/20/17 12/20/17 04:03 10:50 Sodium 138 139 Potassium 3.6 3.7 Chloride 103 101 Carbon Dioxide 27 20 L BUN 13 13 Creatinine 0.6 L 0.8 Glucose 84 88 Calcium 7.8 L 8.3 L Cardiac Enzymes 12/20/17 12/20/17 Range/Units 10:50 10:50 Total Creatine Kinase 478 H (24-195) IU/L CK-MB (CK-2) 2.1 (0-4.9) ng/ml Troponin T < 0.01 (0-0.03) ng/ml Liver Function 12/20/17 12/20/17 Range/Units 04:03 10:50 Total Bilirubin 0.6 0.8 (0.0-1.0) mg/dL Direct Bilirubin < 0.2 (0.0-0.3) mg/dL GGT 14 (8-61) U/L AST 15 19 (0-37) U/l ALT 9 11 (0-40) U/l Alkaline Phosphatase 58 82 (39-117) U/L Albumin 2.6 L 2.9 L (3.2-5.2) gm/dL Medical - CN: A/P (1) Acute respiratory failure with hypoxemia Status: Acute Assessment and plan: * acute hypoxic hypercapnic respiratory failure-unclear etiology. Rapidly developing bilateral infiltrate possible aspiration versus pulmonary edema. Not responding to conventional ventilation with sats mid 70s. improved to mid 80s on bilevel ventilation. Transferring to [place] [facility]. * sepsis-white count 22,000. Secondary to do perforation/peritonitis.on broad antibiotic coverage * DU perforation-status post surgery.postop day 2 plan * continue mechanical ventilation per protocol * Propofol/fentanyl * Antibiotic coverage * Air transfer to [facility] critical care time spent on rapid response/Initiation of mechanical ventilation stabilizing patient, discussions with workers compensation specialist and surgery, review of blood gas, imaging, labs over 120 minutes
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
[2017-12-20] MEDS ORDERED: NOREPINEPHRINE BITARTRATE 16 MG in 0.9 % SODIUM CHLORIDE 234 ML IV SCH (12:45)
[2017-12-20] MEDS ORDERED: 0.9 % SODIUM CHLORIDE 250 ML IV SCH (12:45)
--- NOTE | 2017-12-21 03:03 | Emergency Department Note ---
ED Note Addendum Note Addendum: Procedure note. I was called to the bedside in the ICU at 12/20/2017 around 10 AM or so-see nursing and code notes for full details-for respiratory distress and failure along with tachycardia. Patient was in severe hypoxia with florid pulmonary edema status post surgery yesterday. Rapid response was progress for this. Is asked to go ahead and intubate the patient. I briefly instructed the patient as to what we are about to; recently he had been DNI but he had revoke this in order to have surgery. He was quite distraught during this episode as well and readily agreed-verbal consent Noted that he had poor dentition with multiple missing teeth prior to starting. we preoxygenated bag valve mask and then gave 40 mg of rocuronium and then used a glide scope to insert a lubricated 7.5 Portuguese ET tube with stylette under direct visualization of the vocal cords on the first attempt. Stylet was removed cuff was inflated. He was suctioned immediately after placing the tube while holding the tube in position. We checked placement with stethoscope, and chest x-ray. Dr. Barth and Dr. Edward Chapin continue to code this patient-see their notes for full details
== END 2017-12-20 13:00 | disposition short-term general hospital (02) | DRG 329 ==
LOC: ED 10:13 → SUR 14:35 → ICU 18:10
PROVIDERS: ADMIT Family Medicine Adult Medicine; ATTEND Family Medicine Adult Medicine